=== PATIENT | male | born 1970 | race Caucasian/White ===

== ENCOUNTER 2021-04-30 05:13 | Emergency (ER) | payer MEDICAID ==
[2021-04-30] MEDS ORDERED: Amoxicillin/Clavulanate K 875-125 MG Tab ONE (06:30)
--- NOTE | 2021-04-30 10:52 | EDM.PDOC ---
ED HPI GENERAL MEDICAL PROBLEM - General Chief Complaint: Headache Stated Complaint: HEADACHE Time Seen by Provider: 04/30/21 06:10 - History of Present Illness INITIAL COMMENTS - FREE TEXT/NARRATIVE: Pt comes to ER with C/O headaches for a few days and sinus congestion. He feels he has some allergies because symptoms started after removing some old ceiling tiles that were dirty. He points to the forehead and orthodox area when describing the area of concern. Occasional dry cough. No SOB or wheezing. Treatments MEDICAL CUSTOMER SERVICE REPRESENTATIVE: Reports: Other (see below) Other Treatments MEDICAL CUSTOMER SERVICE REPRESENTATIVE: awaiting covid swab results Frontal Headache Pain Score (Numeric/FACES): 5 - Related Data Allergies Allergy/AdvReac Type Severity Reaction Status Date / Time morphine Allergy Severe Hives Verified 04/30/21 05:44 Home Meds: Home Meds NK [No Known Home Meds] 04/30/21 [History] Past Medical History HEENT History: Reports: Sinusitis - Past Surgical History HEENT Surgical History: Reports: Other (See Below) Other HEENT Surgeries/Procedures: cleft lip repair Musculoskeletal Surgical History: Reports: Other (See Below) Other Musculoskeletal Surgeries/Procedures:: Fx of l ankle Social & Family History - Family History Family Medical History: No Pertinent Family History - Tobacco Use Tobacco Use Status *Q: Never Tobacco User Second Hand Smoke Exposure: No - Caffeine Use Caffeine Use: Reports: Coffee, Soda - Recreational Drug Use Recreational Drug Use: No ED ROS ENT - Review of Systems Review Of Systems: Comprehensive ROS is negative, except as noted in HPI. HEENT: Reports: Sinus Problem Neurological: Reports: Headache ED EXAM, ENT - Physical Exam Exam: See Below Eye Exam: Bilateral Eye: EOMI, PERRL Nose: Other (nasal congestion is present.) Mouth/Throat: Other (Posterior pharynx shows mild drainage and cobblestoning.) Course - Vital Signs Last Recorded V/S: Last Vital Signs Temp 96 F L 04/30/21 05:30 Pulse 78 04/30/21 05:30 Resp 16 04/30/21 05:30 BP 145/94 H 04/30/21 05:30 Pulse Ox - Orders/Labs/Meds Labs: Laboratory Tests 04/30/21 Range/Units 05:50 SARS CoV-2 RNA Rapid BRAEDEN Negative Departure - Departure Time of Disposition: 06:20 Disposition: Home, Self-Care 01 Condition: Good Clinical Impression: Sinusitis, acute frontal Qualifiers: Recurrence: non-recurrent Qualified Code(s): J01.10 - Acute frontal sinusitis, unspecified - Discharge Information *PRESCRIPTION DRUG MONITORING PROGRAM REVIEWED*: No *COPY OF PRESCRIPTION DRUG MONITORING REPORT IN PATIENT HERIBERTO: No Instructions: Sinusitis, Adult, [id number], General Headache Without Cause, [id number], Sinus Headache, [id number] Referrals: PCP,None [Primary Care Provider] - Forms: ED Department Discharge Additional Instructions: Augmentin started. He is to be off work for 2 days. He can use Tylenol and/or Motrin as needed for pain. Re check if condition gets worse. Sepsis Event Note (ED) - Evaluation Sepsis Screening Result: No Definite Risk - Focused Exam Vital Signs: Vital Signs Temp Pulse Resp BP 04/30/21 05:30 96 F L 78 16 145/94 H
== END 2021-04-30 06:30 | disposition home or self-care (01) ==
LOC: LB.ED 05:13
DX: J01.10 Acute frontal sinusitis, unspecified (principal); Z88.5 Allergy status to narcotic agent; Z20.822 Contact with and (suspected) exposure to COVID-19
CPT/HCPCS: 87635; 99283; A9270; U0002

== ENCOUNTER 2021-09-24 16:15 | Emergency (ER) | payer OTHER, MEDICAID ==
[2021-09-24 16:52] VITALS: BP 133/91; PULSE 64
[2021-09-24] MEDS ORDERED: Cephalexin 500 MG Cap ONE (18:00)
[2021-09-24] MEDS ORDERED: hydrOXYzine HCl 25 MG Tab ONE (18:00)
[2021-09-24] MEDS ORDERED: Acetaminophen/HYDROcodone 325-5 MG Tab ONE (18:00)
== END 2021-09-24 18:28 | disposition home or self-care (01) ==
LOC: LB.ED 16:15
DX: S61.022A Laceration with foreign body of left thumb without damage to nail, initial encounter (principal); Z88.5 Allergy status to narcotic agent; W26.0XXA Contact with knife, initial encounter
CPT/HCPCS: 12001; 12041; 99282-25; 99283; A9270-GY